=== PATIENT | male | born 1990 | race Two or more races ===

== ENCOUNTER 2021-06-10 16:12 | Emergency (ER) | payer MEDICAID, OTHER ==
[~2021-06-10] VITALS: Ht 182.9 cm; Wt 90.7 kg
[2021-06-10 20:16] VITALS: BP 119/74
== END 2021-06-10 20:23 | disposition home or self-care (01) ==
LOC: ER 16:12
DX: S90.32XA Contusion of left foot, initial encounter (principal); W20.8XXA Other cause of strike by thrown, projected or falling object, initial encounter; Y93.89 Activity, other specified; Y92.89 Other specified places as the place of occurrence of the external cause; Y99.8 Other external cause status
CPT/HCPCS: 73630

== ENCOUNTER 2022-02-21 16:56 | Emergency (ER) | payer OTHER ==
[~2022-02-21] VITALS: Ht 182.9 cm; Wt 88.5 kg
[2022-02-21] MEDS ORDERED: DexAMETHasone SOD PHOS 10MG/1ML VIAL INJ IM ONE (20:30)
[2022-02-21] MEDS ORDERED: KETOROLAC TROMETH 60MG/2ML VIAL IM ONE (20:30)
[2022-02-21 23:14] VITALS: BP 133/86
== END 2022-02-21 23:23 | disposition home or self-care (01) ==
LOC: ER 16:56
DX: M79.10 Myalgia, unspecified site (principal); M54.50 Low back pain, unspecified; G89.29 Other chronic pain
CPT/HCPCS: 74176; 96372; 99284; J1100; J1885